=== PATIENT | male | born 1995 | race Hispanic/Latino ===

== ENCOUNTER 2025-02-13 15:27 | Emergency (ER) | payer OTHER, SELFPAY ==
[2025-02-13 15:28] VITALS: BP 142/101; PULSE 69; RESP 16; TEMP 36; O2SAT 100; BMI 21.7
--- NOTE | 2025-02-13 15:32 | ED.RN ---
This RN attempted to call Gilbert with [facility] for drug and alcohol testing, gilbert did not answer. Voicemail left
[2025-02-13] MEDS: Lidocaine 1% (20 ml mdv) 20 ML Vial INFILT (15:43)
--- NOTE | 2025-02-13 15:52 | EDS_ITS ---
HPI History of Present Illness HPI Narrative: 29-year-old healthy male no no prior surgery to this hand. Past medical history. He is right-hand dominant. He was at work today and cut the dorsum of his left thumb. This occurred just prior to arrival. Unsure of his last tetanus that will be updated. Denies any other injuries. He is unable to extend his left thumb. Chief Complaint: Laceration Occured/Mechanism Mechanism/Context: Yes injury Onset/Context/Timing Onset: Today and Hours Context: Sudden Onset Timing: Continuous Quality of Pain: Sharp Current Severity: Mild Maximum Severity: Mild Narrative Narrative: 29-year-old male no significant past medical history. [id number]. Left thumb laceration dorsum of the left thumb at work just prior to arrival. Unknown last tetanus will be updated. Tetanus Immunization: Unknown Prior similar symptoms: No Recent Illness/Hospitalization: No PFSH PFSH Medical History no medical history no medical history Allergy/AdvReac Type Severity Reaction Status Date / Time No Known Allergies Allergy Verified 02/13/25 15:28 Surgical History no surgical history Social History Smoking Status: Never smoker ROS ROS ED ROS Narrative Denies recent illness Constitutional Constitutional ED: Denies fever(s) Eyes Eyes: Denies blurry vision ENT ENT ED: Denies ear pain Cardiovascular Cardiovascular: Denies chest pain Respiratory/Chest Respiratory/Chest: Denies cough Gastrointestinal Gastrointestinal: Denies abdominal pain Genitourinary Genitourinary ED: Denies hematuria Musculoskeletal Musculoskeletal: Denies back pain Integumentary Denies abscess Neurologic Neurologic: Denies headache(s) Psychiatric Psychiatric: Denies anxiety Endocrine Endocrinology: Denies cold intolerance Hematologic/Lymphatic Hematologic/Lymphatic: Denies easy bleeding, easy bruising or lymphadenopathy Allergic/Immunologic Allergic/Immunologic ED: Denies mouth swelling, tongue swelling or urticaria EXAM Physical Exam Narrative Exam Narrative: Consider male sitting upright in bed vital signs stable afebrile. There is an glass finisher in the room. H EENT exam pupils round react light. Moist rehemorrhage. No trauma nose face or scalp. Neck nontender. Back nontender. Lungs clear to auscultation bilaterally. Heart regular rhythm rate about 70 no murmur. Chest wall ribs nontender. Abdomen soft nontender. Moving all 4 extremities. Dorsal left hand has 2 inch or so laceration between the MCP and PIP. He is unable to extend the distal phalanx of his left thumb concern for extensor tendon laceration. Normal cap refill. Normal touch sensation. Able to do flexion. Mild active bleeding. Patient is awake alert. Const Vital Signs: 02/13/25 15:28 Temperature 96.8 F L Temperature Source Temporal Pulse Rate 69 Respiratory Rate 16 Blood Pressure 142/101 H Blood Pressure Mean 114 Pulse Ox 100 Oxygen Delivery Method Room Air Positive well nourished and well developed; Negative for cachectic, contractures or unkempt General Appearance ED: well developed; Negative for unkempt, cachectic, contractures, cyanotic or diaphoretic Nutritional Appearance: Negative for cachectic HEENT Reports moist mucous membranes normocephalic and atraumatic; Negative for trauma or tenderness Eyes PERRL and EOMs intact bilaterally Neck full ROM and supple General: Negative for tenderness Chest Wall inspection of chest normal and palpation of chest normal Resp normal respiratory effort and clear to auscultation bilaterally Cardio regular rate, regular rhythm, S1 normal heart sound, S2 normal heart sound and no murmurs GI non-tender, non-distended and no masses Palpation: soft; Negative for tender, guarding or rebound tenderness present Back/Spine no CVA tenderness Extremity Negative for normal to inspection or full ROM Extremity Narrative: Left thumb dorsal side 1 to 2 inch laceration between the MCP and PIP. Mild active bleeding. He is unable to extend the distal phalanx of the left thumb concern for an extensor tendon laceration. Normal touch sensation. 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 injury left thumb laceration dorsal side concern for extensor tendon laceration because he is unable to extend the distal end of the thumb. Tetanus updated. X-ray of be obtained. Tetanus updated. Wound locally anesthetized. Cleaned thoroughly. Explored. Irrigated and closed. Follow-up with plastic surgery for extensor tendon repair. History & Record Review Discussion w/independent historian: Patient Additional record(s) reviewed:: No prior records Radiography Diagnostic Testing: Left thumb x-ray, 3 views, interpreted by myself shows no acute fracture. No foreign body. No dislocation. Discharge Plan Triage Chief Complaint: Laceration ED Provider: Champ Angulo Dx/Rx/DC Orders Primary Care Provider: Care Physician,No Primary Referrals: NOT,DEFINED [Non-Staff] - Print Language: Tajik
--- NOTE | 2025-02-13 16:24 | RAD_ITS ---
PROCEDURE: LEFT FINGER(S) MIN 2 VIEWS 02/13/2025 REASON FOR EXAM: LEFT THUMB LACERATION. TECHNIQUE: Frontal lateral and oblique radiographs of the left thumb COMPARISON: None. FINDINGS: No acute fracture or dislocation/subluxation. The interphalangeal joint of the thumb is fixed in the slightly flexed position, which may reflect injury to the extensor tendon. Preserved joint spaces. No aggressive osseous lesion. Mild soft tissue swelling about the thumb. No radiopaque foreign body. RAD/Finger(s) Min 2 Views IMPRESSION: No acute fracture. The left 1st digit (thumb) interphalangeal joint fixed in t he flexed position which may reflect injury to the extensor tendon. Reading Location: [id number]
== END 2025-02-13 18:10 | disposition home or self-care (01) ==
LOC: ED 16:03
PROVIDERS: Emergency Provider Emergency Medicine; Visit Provider Emergency Medicine
DX: S61.012A Laceration without foreign body of left thumb without damage to nail, initial encounter (principal); W26.8XXA Contact with other sharp object(s), not elsewhere classified, initial encounter; Y99.0 Civilian activity done for income or pay; Z23 Encounter for immunization
CPT/HCPCS: 12002; 73140; 90715; 99284

== ENCOUNTER 2025-02-15 12:41 | Day surgery (SDC) | payer OTHER, SELFPAY ==
[2025-02-15] VITALS (9 sets, daily range): BP systolic 123–136; BP diastolic 73–93; PULSE 59–76; RESP 16; TEMP 36.1–36.8; O2SAT 96–130; BMI 24.8
[2025-02-15] MEDS: Lactated Ringers 1,000 ML 15 ML IV (13:25)
--- NOTE | 2025-02-15 13:39 | SUR.PREOP ---
peace officer used via tablet
--- NOTE | 2025-02-15 13:50 | PRE.ANES_ITS ---
ASA Classification* ASA Classification ASA Classification: 1 and E Assessment & Plan Anesthesia* Anesthesia Assessment Anesthesia Assessment: Discussed sedation and/or anesthesia options, risks, benefits, and alternatives with patient/parents/legal guardian/POA. Questions invited. The patient/parents/legal guardian/POA seems to understand and agrees to proceed with anesthesia plan. Reviewed the physical assessment, medical history, allergy history and patient home medications list prior to surgery/procedure/anesthetic and documented any changes. Performed airway and anesthesia risk assessments. Anesthesia Type Anesthesia Type: MAC History Source History Obtained from:: Patient, Chart and - (Interpretation service was used for this interview.) Anesthesia Focused Assessment* Temperature: 98.3 F Pulse Rate: 62 Blood Pressure: 123/73 Respiratory Rate: 16 Pulse Ox: 100 Oxygen Delivery Method: Room Air Airway Assessment Mouth opens: >3 cm Mallampati Score: I Teeth Condition: Intact Neck Range of motion (ROM): Full ROM Labs Anesthesia Preop lab: CBC CHEMISTRY COAG Pre-Assessment Diagnosis/Proposed Procedure Planned Operative Procedure(s): left thumb extensor tendon repair Anesthesia History Anesthesia History - ruby on rails consultant: Anesthesia History - ruby on rails consultant Hx Hospitalization No 02/15/25 13:05 Any Problems With Anesthesia No 02/15/25 13:05 Cholinesterase deficiency No 02/15/25 13:05 You/Your Family Experience No 02/15/25 13:05 fever (hyperthermia) with Relationship Recent Exposure to Contagious No 02/15/25 13:10 Disease Does patient have nerve No 02/15/25 13:05 stimulator Patient instructed to have device shut off --Does patient have Pacemaker No 02/15/25 13:10 or ICD? When Was Last Pacemaker Check QUESTION #4 FULL TEXT: You/Your Family Experience fever (hyperthermia) with Anesthesia Last Oral Intake Last Oral intake: Last Oral Intake NPO since 00:00 02/15/25 13:10 Meds taken in AM with sips of water? Meds patient instructed to take am of surgery PONV PONV - ruby on rails consultant: PONV - ruby on rails consultant Female No 02/15/25 13:05 HX of Motion Sickness No 02/15/25 13:05 HX of N/V After Surgery No 02/15/25 13:05 Non-Smoker Yes 02/15/25 13:05 Duration of Surgery greater No 02/15/25 13:05 than 60 minutes Number of Risk Factors 1 02/15/25 13:05 PONV Score Low Risk 02/15/25 13:05 Height & Weight Height & Weight: Anesthesia: Height & Weight Height 4 ft 11.06 in 02/15/25 13:10 Weight: 56 kg 02/15/25 13:10 Body Mass Index (BMI) 24.8 02/15/25 13:10 Respiratory Assessment Respiratory Assessment - ruby on rails consultant: Respiratory Tract Infection Hx - ruby on rails consultant Hx Respiratory Tract Infection No 02/15/25 13:05 STOP Sleep Apnea STOP Sleep Apnea - ruby on rails consultant: STOP Sleep Apnea - ruby on rails consultant Hx Hypertension No 02/15/25 13:05 Hx Sleep Apnea No 02/15/25 13:05 CPAP BIPAP Do you snore loudly (louder No 02/15/25 13:05 than talking or can be heard Do you often feel tired/ No 02/15/25 13:05 fatigued/ sleepy during daytime? Has anyone observed you stop No 02/15/25 13:05 breathing during sleep? STOP Results Negative 02/15/25 13:05 QUESTION #5 FULL TEXT : Do you snore loudly (louder than talking or can be heard through closed doors)? 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 Specify any problems Hx of Preganancy in last 3 N/A 02/15/25 13:05 Months Nurse Filling Out Transfusion CPARSONS 02/15/25 13:05 & Questions: Date: 02/15/25 02/15/25 13:05 Time: 13:09 02/15/25 13:05 Patient unable to answer at this time (ie. confused, unrespo /Reproduction History /Reproductive History - ruby on rails consultant: /Reproductive Hx- ruby on rails consultant Hx Now No 02/15/25 13:05 Gestational Age (in weeks): EDC: Hx Hx Para Hx Section SAB Active Medications Active Medications: Current Medications Generic Name Dose Route Start Last Admin Trade Name Freq PRN Reason Stop Dose Admin Cefazolin Sodium 2 gm/ Sodium 110 mls @ 200 mls/hr 02/15/25 15:00 Chloride IV 02/15/25 15:32 INTRAOP ONE Lactated Ringer's 1,000 mls @ 15 mls/hr 02/15/25 13:00 02/15/25 13:25 IV 15 mls/hr .Q48H OSMAR Administration PFSH Medical History no medical history Allergy/AdvReac Type Severity Reaction Status Date / Time No Known Allergies Allergy Verified 02/15/25 13:04 Surgical History no surgical history no surgical history Social History Smoking Status: Never smoker Review of Systems (Anesthesia) ROS Narrative System reviewed and no additional complaints, except as documented.
--- NOTE | 2025-02-15 14:38 | PCM.HP.STD ---
HPI - General HPI Narrative AJ HARRINGTON, is a 29 M who presents with left dorsal thumb laceration and concern for EPL complete laceration. Current Encounter (DATE OF SURGERY H&P UPDATE): I saw and examined the patient this morning in pre-operative holding. We discussed risks and benefits of today's surgery and they would like to proceed. NO CHANGE in health history since last seen and evaluated. Ready to proceed with surgery. PFSH Medical History no medical history Allergy/AdvReac Type Severity Reaction Status Date / Time No Known Allergies Allergy Verified 02/15/25 13:04 Surgical History no surgical history Social History Smoking Status: Never smoker Vital Signs Vital Signs Vital Signs: 02/15/25 13:10 02/15/25 13:10 02/15/25 14:04 Temperature 98.3 F 98.3 F Temperature Source Temporal Pulse Rate 62 62 Respiratory Rate 16 16 Respiratory Pattern Normal Blood Pressure 123/73 H 123/73 H Blood Pressure Mean 89 Blood Pressure Source Monitor Blood Pressure Position Semi-Fowlers Blood Pressure Location Right Arm Pulse Ox 100 100 Oxygen Delivery Method Room Air Room Air Weight Weight: 123 lb 7.342 oz Body Mass Index (BMI) 24.8 Physical Exam Narrative LUE: Left thumb with transverse dorsal laceration. Unable to extend thumb at IP joint. I marked his left thumb Assessment & Plan Assessment/Plan (1) Extensor tendon laceration of left hand with open wound: PLAN: I talked to the patient extensively about the risks of surgery, including bleeding, infection, damage to surrounding structures, poor scaring, surgical site dehiscence and wound formation, a stiff finger, need for hand therapy, failure of repair, need for revision or need for tendon transfer, need for wound care, need for repeat operations, failure to obtain the desired result, DVT/PE, and the risks of anesthesia including , including stroke (from low blood pressure/ischemia or clot). The benefits and alternatives of this surgery were also discussed. All of their questions were answered, and they agreed to proceed with surgery. INTERVAL H&P PLAN, DATE OF SURGERY: We will proceed with surgery today.
--- NOTE | 2025-02-15 15:04 | PCM.OPRPT ---
Operative Report (Standard) Operative Information Date of Procedure: 02/15/25 Pre-Operative Diagnosis: Left thumb extensor pollicis longus (EPL) laceration Post-Operative Diagnosis: Same Surgery/Procedure Performed: Repair of left thumb EPL tendon (CPT: 37012) composition floor layer: Yes Management Manager: Gretchen Diaz Tasks completed by rehabilitation assistant: Retracting Type of Anesthesia: Local MAC (8 cc of 50-50 mixture of 1% lidocaine and quarter percent Marcaine) RN Documented Start/Stop Times: Operation Date: 02/15/25 15:00 Case Time Into Pre-Op 02/15/25 12:49 Anesthesia Start 02/15/25 14:48 Into Room 02/15/25 14:48 Procedure Start Time: 14:00 Procedure Stop Time: 14:30 Select all DRAINS/GRAFTS/IMPLANTS that apply: None Estimated Blood Loss: 5 cc Specimen collected: No Description of surgery: Indications: Patient is a delightful 29-year-old male with a left thumb laceration with concern for EPL injury. Presents today for repair. He understands the risks, benefits, and alternatives of the procedure today and elected to proceed. Procedure details: Patient was correct identified in preoperative holding and marked. He was taken back to the operating room he was administered sedation and local anesthesia as noted above. He was prepped and draped in sterile fashion all proper timeouts were performed. An Esmarch was used and the tourniquet on his arm was insufflated to 250 mmHg. The existing laceration was opened with tenotomy scissors and sutures were removed. The EPL stumps were identified. The laceration was extended proximally and distally into a Z ever so slightly so that primary repair could be performed. The wound was then washed out with copious amounts of normal saline and Irrisept .The extensor expansion and the EPL was then repaired with 4 core strands using 2 [id number] 3-0 FiberWire sutures. 6-0 running Prolene epitendinous suture was then applied. The tourniquet was then deflated and hemostasis obtained with bipolar electrocautery. The wound edges were then sutured with interrupted 3-0 Chromic Gut suture. Xeroform and a plaster splint (thumb spica with thumb in full extension) was then applied. The patient tolerated the procedure well. He was awakened and taken the PACU in stable condition. Postoperative plan: Follow-up in 1 week for wound check and to be changed into an Orthoplast splint. Surgical Findings: EPL laceration with 1 cm distal stump Able to perform primary repair Complications Complications: No Admit VTE Documentation VTE Mechan Device Prophylaxis: SCD's
[2025-02-15] MEDS: Lidocaine 1% (20 ml mdv) 20 ML Vial (15:30)
[2025-02-15] MEDS: Lidocaine 1% /Epi 1:100 (20ml) 20 ML Vial (15:32)
--- NOTE | 2025-02-15 15:56 | PCM.POST.ANE ---
Anesthesia: Postop Eval I Current Vital Signs Temperature: 97.6 F Pulse Rate: 76 Blood Pressure: 127/82 Respiratory Rate: 16 Pulse Ox: 96 Oxygen Delivery Method: Room Air Assessment Airway patent: Yes Spontaneous unlabored respirations: Yes Mental status: Awake and Calm nausea: No Vomiting: No Anesthesia Complication: No Fluid Hydration Crystalloid volume administer (ml): 400 Total IV fluid infused: 400 Progress Note Anesthesia document: Postop Eval 1 completed: Yes
--- NOTE | 2025-02-15 19:09 | POSTOPAN2_ITS ---
Anesthesia Postop Eval I Sum Postop Eval Completion status Anesthesia document: Postop Eval 1 completed: Yes Anesthesia Postop Eval I Summary Anesthesia Postop Eval I Summary: Anesthesia Postop Eval I: Assessment Summary Airway patent Yes 02/15/25 15:56 TREE [email or web address] Spontaneous unlabored Yes 02/15/25 15:56 TREE [email or web address].MONI respirations Mental status Awake,Calm 02/15/25 15:56 TREE [email or web address] nausea No 02/15/25 15:56 TREE [email or web address].MONI Vomiting No 02/15/25 15:56 TREE [email or web address].MONI Anesthesia Postop Eval I: Fluid Summary Crystalloid volume administer 400 02/15/25 15:56 TREE [email or web address].[email or web address] (ml) Colloids volume administered ( ml) Blood Product volume administered (ml) Total IV fluid infused 400 02/15/25 15:56 TREE [email or web address].MONI Anesthesia Postop Eval I: Summary Notes Anesthesia Complication No 02/15/25 15:56 TREE KILLERLAMAR Anesthesia Complication Comment: Post-operative progress note Anesthesia: Postop Eval II Evaluation Mental status: Awake Pain Level: 2 nausea: No Vomiting: No
--- NOTE | 2025-02-15 19:09 | PCM.POSTANE2 ---
Anesthesia Postop Eval I Sum Postop Eval Completion status Anesthesia document: Postop Eval 1 completed: Yes Anesthesia Postop Eval I Summary Anesthesia Postop Eval I Summary: Anesthesia Postop Eval I: Assessment Summary Airway patent Yes 02/15/25 15:56 TOOLMAKER [email or web address] Spontaneous unlabored Yes 02/15/25 15:56 TOOLMAKER HELPER.MONI respirations Mental status Awake,Calm 02/15/25 15:56 TOOLMAKER HELPER.MONI nausea No 02/15/25 15:56 TOOLMAKER HELPER.MONI Vomiting No 02/15/25 15:56 TOOLMAKER HELPER.MONI Anesthesia Postop Eval I: Fluid Summary Crystalloid volume administer 400 02/15/25 15:56 TOOLMAKER HELPER.PATSYY (ml) Colloids volume administered ( ml) Blood Product volume administered (ml) Total IV fluid infused 400 02/15/25 15:56 TOOLMAKER HELPER.MONI Anesthesia Postop Eval I: Summary Notes Anesthesia Complication No 02/15/25 15:56 TOOLMAKER HELPERLAMAR Anesthesia Complication Comment: Post-operative progress note Anesthesia: Postop Eval II Evaluation Mental status: Awake Pain Level: 2 nausea: No Vomiting: No
--- OUTSIDE RECORDS SUMMARY | 2025-02-15 19:50 | XMS RPT_ITS | CCD ---
Author Organization [facility] Care Team Providers Care Corporate Administrative Assistant Name Role Phone Kev SAHNI, Dr. Oakes Emergency Provider Care Physician, No Primary Primary Care Provider Unavailable Care Physician, No Primary Referring Provider Un Dr. Jeff Nye MD Attending Provider Champ Angulo Attending Unavailable Care Physician, No Primary Primary Care Unava ilable Care Physician, No Primary Primary Care Unava ilable Jeff Shanks Attending Unavailable Dimitris, Jeff Attending Unavailable Care Physician, No Primary Primary Care Unava ilable Dimitris, Jeff Attending Unavailable Care Physician, No Primary Referring Unava ilable Care Physician, No Primary Primary Care Heenava Dr. Jeff Anguiano MD Referring Provider Dr. Jeff hSanks MD Other Provider [phone] Medications Current Medications Medication Drug Class(es) Dates Sig (Normalized) Sig (Original) doxycycline hyclate 100 mg oral capsule (1 source) Tetracycline-cla ss Drug Start: 02-15-2025 take 1 capsule by mouth twice daily Doxycycline Hyclate 100 mg capsule Active 100 mg PO TWICE A DAY 14 7 0 February 15, 2025 12:00am oxyCODONE hydrochloride 5 mg oral tablet (1 source) Opioid Agonist Start: 02-15-2025 take 1 tablet by mouth twice daily as needed for pain Oxycodone 5 mg tablet Active 5 mg PO TWICE A DAY as needed for pain 10 5 0 February 15, 2025 Extensor tendon laceration of left hand with open wound Unspecified open wound of left hand, initial encounter Problems Problem Classification Problem Date Documented Da te Episodic/Chronic Open wounds of extremities (4 sources) Laceration of tendon of left hand; Translations: [Laceration of other specified muscles, fascia and tendons at wrist and hand level, left hand, initial encounter] 02-14-2025 Episodic Results Test Name Value Interpretation Reference Range [facility] Plastic Surgery Visit Report on 02-14-2025 Plastic Surgery Visit Report [facility] [address], [address] [place] [address] OFFICE VISIT Date of Service: 02/14/25 MR#: [id number] Acct: [id number] Name: AJ HARRINGTON Rep #: [id number] : 1995 Provider: Dr. Jeff Shanks MD Age/Sex: 29/M Location: [place] [address] Status: Signed Intake Vital Signs 02/13/25 15:28 02/14/25 08:37 Height 5 ft 5 in 5 ft 5 in Intake Visit Reasons: ED FOLLOW UP-[facility] Allergies No Known Allergies Allergy (Verified 02/13/25 15:28) PFSH Medical History no medical history Surgical History no surgical history Social History Smoking Status: Never smoker [facility] ED FOLLOW UP-[facility] Details: The patient is a 29-year-old male presenting with a dorsal left thumb injury sustained from a knife cut where there was concern for extensor pollicis longus (EPL) injury. 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 The patient is right-handed and received a tetanus shot yesterday at the time of the injury in the emergency department. The patient reports no previous significant injuries to the hand, although he has experienced minor issues in the past. He denies any other health problems and does not use tobacco products. Patient is not a smoker No personal or family history of bleeding or clotting problems He is here today with a helicopter technician who is interpreting for him Attestation: Documentation on this patient encounter was supported using ambient scribe technology/ voice AI technology. The patient consented to recording for the purpose of documenting the encounter. Provider reviewed content of the generated note prior to signature. Exam Details Left upper Extremity Inspection: Thumb droop observed, unable to extend the IP joint Palpation: No collateral ligament instability in the thumb. Thumb joints are supple and have complete passive range of motion Motor: difficulty opposing thumb to the small finger. Unable to extend the thumb IP joint Sensory: Intact to light touch on the radial and ulnar borders; no numbness or tingling reported. Vascular: Finger tips are warm and well perfused with greater than 2 second capillary refill. 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 The injury has resulted in a tendon injury, causing inability to extend the thumb and difficulty in opposition. The patient received a tetanus shot and is on antibiotics to prevent infection. Surgical intervention is planned to repair the tendon, with risks including infection, nerve damage, and potential re-rupture if the patient returns to work prematurely. 1. Tendon Injury Of The Thumb The patient will undergo surgical repair of the thumb tendon to restore function. Post-operative care includes wearing a splint for three weeks and engaging in hand therapy to regain mobility. The patient is advised to avoid returning to work prematurely to prevent re-rupture. Furthermore we talked about the planned extensions of the incision. 2. Tetanus Prophylaxis The patient received a tetanus shot as a preventative measure following the injury. I talked to the patient extensively about the risks of surgery, including bleeding, infection, damage to surrounding structures, poor scaring, surgical site dehiscence and wound formation, need for wound care, need for repeat operations, rupture of the tendon and need for tendon transfers (also discussed need for tendon interposition graft possibility which would be a palmaris tendon), need for tendon transfers in the future which would be an EIP transfer, failure to obtain the desired result, DVT/PE, and the risks of anesthesia including , including stroke (from low blood pressure/ischemia or clot). The benefits and alternatives of this surgery were also discussed. All of their questions were answered, and they agreed to proceed with surgery. Plan for repair of the left EPL under [facility] local tomorrow 02/14/25 1708 Date Jeff Shanks MD Cosigner Signature: Date (if applicable) CC: Normal [facility] Emergency Department Summary on 02-13-2025 Emergency Department Summary [facility] Medical Records Department [address] [place] [address] Emergency Department Summary 02/13/25 MR#: [id number] Acct: [id number] Name: AJ HARRINGTON Rep #: [id number] : 1995 29 From: Champ Angulo MD PCP: Care Physician,No Primary Status:DEP ER Location: ED HPI History of Present Illness HPI Narrative: 29-year-old healthy male no no prior surgery to this hand. Past medical history. He is right-hand dominant. He was at work today and cut the dorsum of his left thumb. This occurred just prior to arrival. Unsure of his last tetanus that will be updated. Denies any other injuries. He is unable to extend his left thumb. Chief Complaint: Laceration Occured/Mechanism Mechanism/Context: Yes injury Onset/Context/Timing Onset: Today and Hours Context: Sudden Onset Timing: Continuous Quality of Pain: Sharp Current Severity: Mild Maximum Severity: Mild Narrative Narrative: 29-year-old male no significant past medical history. [id number]. Left thumb laceration dorsum of the left thumb at work just prior to arrival. Unknown last tetanus will be updated. Tetanus Immunization: Unknown Prior similar symptoms: No Recent Illness/Hospitalizatio n: No PFSH PFSH Medical History no medical history no medical history Allergy/AdvReac Type Severity Reaction Status Date / Time No Known Allergies Allergy Verified 02/13/25 15:28 Surgical History no surgical history Social History Smoking Status: Never smoker ROS ROS ED ROS Narrative Denies recent illness Constitutional Constitutional ED: Denies fever(s) Eyes Eyes: Denies blurry vision ENT ENT ED: Denies ear pain Cardiovascular Cardiovascular: Denies chest pain Respiratory/Chest Respiratory/Chest: Denies cough Gastrointestinal Gastrointestinal: Denies abdominal pain Genitourinary Genitourinary ED: Denies hematuria Musculoskeletal Musculoskeletal: Denies back pain Integumentary Denies abscess Neurologic Neurologic: Denies headache(s) Psychiatric Psychiatric: Denies anxiety Endocrine Endocrinology: Denies cold intolerance Hematologic/Lymphatic Hematologic/Lymphatic: Denies easy bleeding, easy bruising or lymphadenopathy Allergic/Immunologic Allergic/Immunologic ED: Denies mouth swelling, tongue swelling or urticaria EXAM Physical Exam Narrative Exam Narrative: Consider male sitting upright in bed vital signs stable afebrile. There is an welder fitter apprentice in the room. H EENT exam pupils round react light. Moist rehemorrhage. No trauma nose face or scalp. Neck nontender. Back nontender. Lungs clear to auscultation bilaterally. Heart regular rhythm rate about 70 no murmur. Chest wall ribs nontender. Abdomen soft nontender. Moving all 4 extremities. Dorsal left hand has 2 inch or so laceration between the MCP and PIP. He is unable to extend the distal phalanx of his left thumb concern for extensor tendon laceration. Normal cap refill. Normal touch sensation. Able to do flexion. Mild active bleeding. Patient is awake alert. Const Vital Signs: 02/13/25 15:28 Temperature 96.8 F L Temperature Source Temporal Pulse Rate 69 Respiratory Rate 16 Blood Pressure 142/101 H Blood Pressure Mean 114 Pulse Ox 100 Oxygen Delivery Method Room Air Positive well nourished and well developed; Negative for cachectic, contractures or unkempt General Appearance ED: well developed; Negative for unkempt, cachectic, contractures, cyanotic or diaphoretic Nutritional Appearance: Negative for cachectic HEENT Reports moist mucous membranes normocephalic and atraumatic; Negative for trauma or tenderness Eyes PERRL and EOMs intact bilaterally Neck full ROM and supple General: Negative for tenderness Chest Wall inspection of chest normal and palpation of chest normal Resp normal respiratory effort and clear to auscultation bilaterally Cardio regular rate, regular rhythm, S1 normal heart sound, S2 normal heart sound and no murmurs GI non-tender, non-distended and no masses Palpation: soft; Negative for tender, guarding or rebound tenderness present Back/Spine no CVA tenderness Extremity Negative for normal to inspection or full ROM Extremity Narrative: Left thumb dorsal side 1 to 2 inch laceration between the MCP and PIP. Mild active bleeding. He is unable to extend the distal phalanx of the left thumb concern for an extensor tendon laceration. Normal touch sensation. Neuro oriented x3, CN's II-XII intact bilaterally, moves all extremities, no focal motor deficits and no sensory deficits noted Sensorium / Orientation: alert, oriented to person, oriented to place and oriented to time Motor Exam: strength 5/5 throughout Psych mental status grossly normal Appearance: Negativ (more content not included)... Normal [facility] Finger(s) Min 2 Viewson 01-25 Finger(s) Min 2 Views [facility] Imaging Services [address] [place] [address] Finger(s) Min 2 Views MR#: [id number] Acct: [id number] Name: AJ HARRINGTON Rep #: [id number] : 1995 M 29 From: Armen Menendez MD PCP: Care Physician,No Primary Status: REG ER Study: Finger(s) Min 2 Views Date of Exam: 02/13/25 Exam# [id number] Ordering Dr: Champ Angulo MD PROCEDURE: LEFT FINGER(S) MIN 2 VIEWS 02/13/2025 REASON FOR EXAM: LEFT THUMB LACERATION. TECHNIQUE: Frontal lateral and oblique radiographs of the left thumb COMPARISON: None. FINDINGS: No acute fracture or dislocation/subluxatio n. The interphalangeal joint of the thumb is fixed in the slightly flexed position, which may reflect injury to the extensor tendon. Preserved joint spaces. No aggressive osseous lesion. Mild soft tissue swelling about the thumb. No radiopaque foreign body. RAD/Finger(s) Min 2 Views IMPRESSION: No acute fracture. The left 1st digit (thumb) interphalangeal joint fixed in the flexed position which may reflect injury to the extensor tendon. Reading Location: [id number] CC: Dr. Champ Angulo MD; No Primary Care Physician Car Spotter: Signed Normal [facility] Vital Signs Date Time Vital Sign Value Performing Clinician Faci lity 02-15-2025 16:26-0400 Body temperature 97 [degF] Dr. Champ Angulo MD Work Phone: [facility] 02-15-2025 16:26-0400 Diastolic blood pressure 93 mm[Hg] Dr. Champ Angulo MD Work Phone: 7(776)883-980493 [place] [address] 02-15-2025 16:26-0400 Heart rate 62 /min Dr. Champ Angulo MD Work Phone: 3(991)995-732193 [place] [address] 02-15-2025 16:26-0400 Respiratory rate 16 /min Dr. Champ Angulo MD Work Phone: 0(370)705-687193 [place] [address] 02-15-2025 16:26-0400 SaO2% (BldA) [Mass fraction] 98 % Dr. Champ Angulo MD Work Phone: [phone])[phone] [place] [address] 02-15-2025 16:26-0400 Systolic blood pressure 129 mm[Hg] Dr. Champ Angulo MD Work Phone: 7(178)253-875593 [place] [address] 02-15-2025 13:10-0400 Body height 150.[address] Champ Angulo MD Work Phone: 1(080)682-165793 [place] [address] 02-15-2025 13:10-0400 Body mass index (BMI) [Ratio] 24.8 kg/m2 Dr. Champ Angulo MD Work Phone: 7(244)268-038993 [place] [address] 02-15-2025 13:10-0400 Body weight [address] Champ Angulo MD Work Phone: 0(325)304-963293 [place] [address] 02-14-2025 08:37-0400 Body height 165.[address] Champ Angulo MD Work Phone: 9(428)203-318993 [place] [address] 02-13-2025 15:28-0400 Body height 165.[address] Champ Angulo MD Work Phone: 0(384)273-814793 [place] [address] 02-13-2025 15:28-0400 Body mass index (BMI) [Ratio] 21.7 kg/m2 Dr. Champ Angulo MD Work Phone: 2(215)538-706093 [place] [address] 02-13-2025 15:28-0400 Body temperature 96.8 [degF] Dr. Champ Angulo MD Work Phone: 5(468)130-721493 [place] [address] 02-13-2025 15:28-0400 Body weight 59.[address] Champ Angulo MD Work Phone: [facility] 02-13-2025 15:28-0400 Diastolic blood pressure 101 mm[Hg] Dr. Champ Angulo MD Work Phone: [facility] 02-13-2025 15:28-0400 Heart rate 69 /min Dr. Champ Angulo MD Work Phone: [facility] 02-13-2025 15:28-0400 Respiratory rate 16 /min Dr. Champ Angulo MD Work Phone: [facility] 02-13-2025 15:28-0400 SaO2% (BldA) [Mass fraction] 100 % Dr. Champ Angulo MD Work Phone: [facility] 02-13-2025 15:28-0400 Systolic blood pressure 142 mm[Hg] Dr. Champ Angulo MD Work Phone: [facility] Encounters Encounter Date Encounter Type Care Provider Facility Start: 02-15-2026 ambulatory Jeff Shanks Facility:[facility] Start: 02-15-2025 ambulatory No Primary Car e Physician Facility:[facility] Start: 02-15-2025 Non-patient / Non-visit Dr. Jeff navarro MD -[facility] Start: 02-15-2025 End: 02-15-2025 Admission to same day surgery center Dr. Jeff Shanks MD [facility] Start: 02-15-2025 End: 02-15-[address] Champ Angulo MD Work Phone: [facility] Start: 02-14-2025 End: 02-14-[address] Jeff Shanks MD -[facility] Work Phone: Start: 02-14-2025 End: 02-14-[address] Champ Angulo MD Work Phone: -[facility] Start: 02-13-2025 End: 02-13-2025 Emergency department patient visit Dr. Champ Angulo MD Work Phone: -Emergency Department Work Phone: Procedures Date Procedure Procedure Detail Performing Clinician Start: 02-15-[address] Dennis Angulo MD Work Phone: Start: 02-13-2025 Plain X-ray of finger D r. Champ Angulo MD Work Phone: Plan of Treatment Date Care Activity Detail Author Start: 02-15-[address] [facility] Start: 02-13-2025 [facility] Immunizations Immunization Date Immunization Notes Care Provider Fa cility 02-13-2025 tetanus toxoid, redu wicho diphtheria toxoid, and acellular pertussis vaccine, adsorbed Dr. Champ Angulo MD Work Phone: [facility] Payers Date Payer Category Payer Self-pay 2025 Unknown 0 Unknown [id number] Unknown [id number] Unknown [id number] [id number] Unknown [id number] [id number] [id number] Social History Date Type Detail Facility Start: 02-13-2025 End: 02-15-2025 Tobacco smoking status NHIS Never smoked tobacco (finding) [facility] Start: 1995 Sex Assigned At Male [facility] Goals Date Patient Goal Desired Activity /State Mental Status Date Assessment Result Facility 02-15-2025 Cognitive function Voice/Name;Touch/Bridget calabrese [facility] Work Phone: Clinical Notes 02-13-2025 to 02-15-2025 Note Date & Type Note Facility 02-15-2025 Consult note Note Date/Time February 15, 2025 3:56 pm [facility] Medical Records Department [address] [place] [address] Anesthesia Postop Eval I 02/15/25 1556 MR#: [id number] Acct: [id number] Name: AJ HARRINGTON Rep #:[id number] : 1995 29 From: Meera snyder CRNA PCP: Care Physician,No Primary Status :[facility] Y Race: H Location: [place] [address] Anesthesia: Postop Eval I Current Vital Signs Temperature: 97.6 F Pulse Rate: 76 Blood Pressure: 127/82 Respiratory Rate: 16 Pulse Ox: 96 Oxygen Delivery Method: Room Air Assessment Airway patent: Yes Spontaneous unlabored respirations: Yes Mental status: Awake and Calm nausea: No Vomiting: No Anesthesia Complication: No Fluid Hydration Crystalloid volume administer (ml): 400 Total IV fluid infused: 400 Progress Note Anesthesia document: Postop Eval 1 completed: Yes 02/15/25 9646 <Electronically signed by Meera hope CRNA> Date _ Meera Saldana CRNA Cosigner Signature: Date CC: ~ Signed [facility] Work Phone: 1(715) 958-524107-23-2025 History and physical note Author [facility] Note Date/Time February 15, 2025 2:40 pm [facility] Medical Records Department [address] [place] [address] H&P Exam - Surgical 02/15/25 1438 MR#: [id number] Acct: [id number] Name: AJ HARRINGTON Rep #:[id number] : 1995 29 From: Jeff Shanks MD PCP: Care Physician,No Primary Status :REG [place] Location: [place] [address] HPI - General HPI Narrative AJ HARRINGTON, is a 29 M who presents with left dorsal thumb laceration and concern for EPL complete laceration. Current Encounter (DATE OF SURGERY H&P UPDATE): I saw and examined the patient this morning in pre-operative holding. We discussed risks and benefits of today's surgery and they would like to proceed. NO CHANGE in health history since last seen and evaluated. Ready to proceed with surgery. PFSH Medical History no medical history Allergy/AdvReac Type Severity Reaction Status Date / Time No Known Allergies Allergy Verified 02/15/25 13:04 Surgical History no surgical history Social History Smoking Status: Never smoker Vital Signs Vital Signs Vital Signs: 02/15/25 13:10 02/15/25 13:10 02/15/25 14:04 Temperature 98.3 F 98.3 F Temperature Source Temporal Pulse Rate 62 62 Respiratory Rate 16 16 Respiratory Pattern Normal Blood Pressure 123/73 H 123/73 H Blood Pressure Mean 89 Blood Pressure Source Monitor Blood Pressure Position Semi-Fowlers Blood Pressure Location Right Arm Pulse Ox 100 100 Oxygen Delivery Method Room Air Room Air Weight Weight: 123 lb 7.342 oz Body Mass Index (BMI) 24.8 Physical Exam Narrative LUE: Left thumb with transverse dorsal laceration. Unable to extend thumb at IP joint. I marked his left thumb Assessment & Plan Assessment/Plan (1) Extensor tendon laceration of left hand with open wound: PLAN: I talked to the patient extensively about the risks of surgery, including bleeding, infection, damage to surrounding structures, poor scaring, surgical site dehiscence and wound formation, a stiff finger, need for hand therapy, failure of repair, need for revision or need for tendon transfer, need for wound care, need for repeat operations, failure to obtain the desired result, DVT/PE, and the risks of anesthesia including , including stroke (from low blood pressure/ischemia or clot). The benefits and alternatives of this surgery werealso discussed. All of their questions were answered, and they agreed to proceedwith surgery. INTERVAL H&P PLAN, DATE OF SURGERY: We will proceed with surgery today. 02/15/25 1440 <Electronically signed by Jeff Shanks MD> Cosigner Signature (if applicable): CC: Dr. Jeff Shanks MD; No Primary Care Physician~ Signed [facility] Work Phone: 1(244) 782-467007-23-2025 Consult note Author Marky Godoy [facility] Note Date/Time February 15, 2025 2:06 pm [facility] Medical Records Department [address] [place] [address] Pre-Anesthesia Evaluation 02/15/25 1350 MR#: [id number] Acct: [id number] Name: AJ HARRINGTON Rep #:[id number] : 1995 29 From: Marky Godoy MD PCP: Care Physician,No Primary Status :REG [facility] Y Race: H Location: [place] [address] ASA Classification* ASA Classification ASA Classification: 1 and E Assessment & Plan Anesthesia* Anesthesia Assessment Anesthesia Assessment: Discussed sedation and/or anesthesia options, risks, benefits, and alternatives with patient/parents/legal guardian/POA. Questions invited. The patient/parents/legal guardian/POA seems to understand and agrees to proceedwith anesthesia plan. Reviewed the physical assessment, medical history, allergy history and patient home medications list prior to surgery/procedure/anesthetic and documented any changes. Performed airway and anesthesia risk assessments. Anesthesia Type Anesthesia Type: MAC History Source History Obtained from:: Patient, Chart and - (Interpretation service was used for this interview.) Anesthesia Focused Assessment* Temperature: 98.3 F Pulse Rate: 62 Blood Pressure: 123/73 Respiratory Rate: 16 Pulse Ox: 100 Oxygen Delivery Method: Room Air Airway Assessment Mouth opens: >3 cm Mallampati Score: I Teeth Condition: Intact Neck Range of motion (ROM): Full ROM Labs Anesthesia Preop lab: CBC CHEMISTRY COAG Pre-Assessment Diagnosis/Proposed Procedure Planned Operative Procedure(s): left thumb extensor tendon repair Anesthesia History 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 When Was Last Pacemaker Check QUESTION #4 FULL TEXT: You/Your Family Experience fever (hyperthermia) with Anesthesia Last Oral Intake Last Oral intake: Last Oral Intake NPO since 00:00 02/15/25 13:10 Meds taken in AM with sips of water? Meds patient instructed to take am of surgery PONV PONV - extrusion process operator: PONV - extrusion process operator Female No 02/15/25 13:05 HX of Motion Sickness No 02/15/25 13:05 HX of N/V After Surgery No 02/15/25 13:05 Non-Smoker Yes 02/15/25 13:05 Duration of Surgery greater No 02/15/25 13:05 than 60 minutes Number of Risk Factors 1 02/15/25 13:05 PONV Score Low Risk 02/15/25 13:05 Height & Weight Height & Weight: Anesthesia: Height & Weight Height 4 ft 11.06 in 02/15/25 13:10 Weight: 56 kg 02/15/25 13:10 Body Mass Index (BMI) 24.8 02/15/25 13:10 Respiratory Assessment Respiratory Assessment - extrusion process operator: Respiratory Tract Infection Hx - extrusion process operator Hx Respiratory Tract Infection No 02/15/25 13:05 STOP Sleep Apnea STOP Sleep Apnea - extrusion process operator: STOP Sleep Apnea - extrusion process operator Hx Hypertension No 02/15/25 13:05 Hx Sleep Apnea No 02/15/25 13:05 CPAP BIPAP Do you snore loudly (louder No 02/15/25 13:05 than talking or can be heard Do you often feel tired/ No 02/15/25 13:05 fatigued/ sleepy during daytime? Has anyone observed you stop No 02/15/25 13:05 breathing during sleep? STOP Results Negative 02/15/25 13:05 QUESTION #5 FULL TEXT : Do you snore loudly (louder than talking or can be heard through closed doors)? 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 Specify any problems Hx of Preganancy in last 3 N/A 02/15/25 13:05 Months Nurse Filling Out Transfusion CPARSONS 02/15/25 13:05 & Questions: Date: 02/15/25 02/15/25 13:05 Time: 13:09 02/15/25 13:05 Patient unable to answer at this time (ie. 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 operator Hx Now No 02/15/25 13:05 Gestational Age (in weeks): EDC: Hx Hx Para Hx Section SAB Active Medications Active Medications: Current Medications Generic Name Dose Route Start Last Admin Trade Name Freq PRN Reason Stop Dose Admin Cefazolin Sodium 2 gm/ Sodium 110 mls @ 200 mls/hr 02/15/25 15:00 Chloride IV 02/15/25 15:32 INTRAOP ONE Lactated Ringer's 1,000 mls @ 15 mls/hr 02/15/25 13:00 02/15/25 13:25 IV 15 mls/hr .Q48H OSMAR Administration PFSH Medical History no medical history Allergy/AdvReac Type Severity Reaction Status Date / Time No Known Allergies Allergy Verified 02/15/25 13:04 Surgical History no surgical history no surgical history Social History Smoking Status: Never smoker Review of Systems (Anesthesia) ROS Narrative System reviewed and no additional complaints, except as documented. 02/15/25 1406 <Electronically signed by Marky price MD> Date _ Marky Godoy MD Cosigner Signature: Date CC: ~ Signed [facility] Work Phone: 1(376) 239-287107-23-2025 Procedure note [facility] Medical Records Department [address] [place] [address] Operative Report 02/15/25 1504 MR#: [id number] Acct: [id number] Name: AJ HARRINGTON Rep #:[id number] : 1995 29 From: Jeff Shanks MD PCP: Care Physician,No Primary Status :[facility] [place] Location: [place] [address] Operative Report (Standard) Operative Information Date of Procedure: 02/15/25 Pre-Operative Diagnosis: Left thumb extensor pollicis longus (EPL) laceration Post-Operative Diagnosis: Same Surgery/Procedure Performed: Repair of left thumb EPL tendon (CPT: 99051) sales support representative: Yes Wet Finisher Wool: rGetchen Diaz Tasks completed by high school assistant principal: Retracting Type of Anesthesia: Local MAC (8 cc of 50-50 mixture of 1% lidocaine and quarterpercent Marcaine) RN Documented Start/Stop Times: Operation Date: 02/15/25 15:00 Case Time Into Pre-Op 02/15/25 12:49 Anesthesia Start 02/15/25 14:48 Into Room 02/15/25 14:48 Procedure Start Time: 14:00 Procedure Stop Time: 14:30 Select all DRAINS/GRAFTS/IMPLANTS that apply: None Estimated Blood Loss: 5 cc Specimen collected: No Description of surgery: Indications: Patient is a delightful 29-year-old male with a left thumb laceration with concern for EPL injury. Presents today for repair. He understands the risks, benefits, and alternatives of the procedure today and elected to proceed. Procedure details: Patient was correct identified in preoperative holding and marked. He was takenback to the operating room he was administered sedation and local anesthesia as noted above. He was prepped and draped in sterile fashion all proper timeouts were performed. An Esmarch was used and the tourniquet on his a rm was insufflated to 250 mmHg. The existing laceration was opened with tenotomy scissors and sutures were removed. The EPL stumps were identified. The laceration was extended proximally and distally into a Z ever so slightly so that primary repair could be performed. The wound was then washed out with copious amounts of normal saline and Irrisept .The extensor expansion and the EPL was then repaired with 4core strands using 2 [id number] 3-0 FiberWire sutures. 6-0 running Proleneepitendinous suture was then applied. The tourniquet was then deflated and hemostasis obtained with bipolar electrocautery. The wound edges were then sutured with interrupted 3-0 Chromic Gut suture. Xeroform and a plaster splint (thumb spica with thumb in full extension) was then applied. The patient tolerated the procedure well. He was awakened and taken the PACU instable condition. Postoperative plan: Follow-up in 1 week for wound check and to be changed into an Orthoplast splint. Surgical Findings: EPL laceration with 1 cm distal stump Able to perform primary repair Complications Complications: No Admit VTE Documentation VTE Mechan Device Prophylaxis: SCD's 02/15/251554 Cosigner Signature (if applicable): CC: Dr. Jeff Shanks MD; No Primary Care Physician~ Signed ADDENDUM by Dr. Jeff Shanks MD on 02/15/25 at 1558 Addendum Addendum on time Start time was 3 PM and finished time was 3:30 PM 02/15/251557 Cosigner Signature (if applicable): cc: Dr. Jeff Shanks MD; No Primary Care Physician ~* Signed [facility]07-23-2025 Consult note [facility] Medical Records Department [address] [place] [address] Anesthesia Postop Eval I 02/15/251555 MR#: [id number] Acct: [id number] Name: AJ HARRINGTON Rep #:[id number] : 1995 29 From: Meera snyder DIRECT SELLING COUNSELOR PCP: Care Physician,No Primary Status :[facility] [place] Y Race: H Location: [place] [address] Anesthesia: Postop Eval I Current Vital Signs Temperature: 97.6 F Pulse Rate: 76 Blood Pressure: 127/82 Respiratory Rate: 16 Pulse Ox: 96 Oxygen Delivery Method: Room Air Assessment Airway patent: Yes Spontaneous unlabored respirations: Yes Mental status: Awake and Calm nausea: No Vomiting: No Anesthesia Complication: No Fluid Hydration Crystalloid volume administer (ml): 400 Total IV fluid infused: 400 Progress Note Anesthesia document: Postop Eval 1 completed: Yes 02/15/25 155 jayy DIRECT SELLING COUNSELOR> Date _ Meera Saldana CRNA Cosigner Signature: Date CC: ~ Signed [facility]07-23-2025 History and physical note [facility] Medical Records Department [address] [place] [address] H&P Exam - Surgical 02/15/25 1438 MR#: [id number] Acct: [id number] Name: AJ HARRINGTON Rep #:[id number] : 1995 29 From: Jeff Shanks MD PCP: Care Physician,No Primary Status :[facility] [place] Location: [place] [address] HPI - General HPI Narrative AJ HARRINGTON, is a 29 M who presents with left dorsal thumb laceration and concern for EPL complete laceration. Current Encounter (DATE OF SURGERY H&P UPDATE): I saw and examined the patient this morning in pre-operative holding. We discussed risks and benefits of today's surgery and they would like to proceed. NO CHANGE in health history since last seen and evaluated. Ready to proceed with surgery. PFSH Medical History no medical history Allergy/AdvReac Type Severity Reaction Status Date / Time No Known Allergies Allergy Verified 02/15/25 13:04 Surgical History no surgical history Social History Smoking Status: Never smoker Vital Signs Vital Signs Vital Signs: 02/15/25 13:10 02/15/25 13:10 02/15/25 14:04 Temperature 98.3 F 98.3 F Temperature Source Temporal Pulse Rate 62 62 Respiratory Rate 16 16 Respiratory Pattern Normal Blood Pressure 123/73 H 123/73 H Blood Pressure Mean 89 Blood Pressure Source Monitor Blood Pressure Position Semi-Fowlers Blood Pressure Location Right Arm Pulse Ox 100 100 Oxygen Delivery Method Room Air Room Air Weight Weight: 123 lb 7.342 oz Body Mass Index (BMI) 24.8 Physical Exam Narrative LUE: Left thumb with transverse dorsal laceration. Unable to extend thumb at IP joint. I marked his left thumb Assessment & Plan Assessment/Plan (1) Extensor tendon laceration of left hand with open wound: PLAN: I talked to the patient extensively about the risks of surgery, including bleeding, infection, damage to surrounding structures, poor scaring, surgical site dehiscence and wound formation, a stiff finger, need for hand therapy, failure of repair, need for revision or need for tendon transfer,need for wound care, need for repeat operations, failure to obtain the desired result, DVT/PE, and the risks of anesthesia including , including stroke (from low blood pressure/ischemia or clot). The benefits and alternatives of this surgery werealso discussed. All of their questions were answered, and they agreed to proceedwith surgery. INTERVAL H&P PLAN, DATE OF SURGERY: We will proceed with surgery today. 02/15/25 1440 Cosigner Signature (if applicable): CC: Dr. Jeff Shanks MD; No Primary Care Physician~ Signed [facility]07-23-2025 Consult note [facility] Medical Records Department [address] [place] [address] Pre-Anesthesia Evaluation 02/15/25 1350 MR#: [id number] Acct: [id number] Name: AJ HARRINGTON Rep #:[id number] : 1995 29 From: Marky Godoy MD PCP: Care Physician,No Primary Status :[facility] [place] [facility] Y Race: H Location: [place] [address] ASA Classification* ASA Classification ASA Classification: 1 and E Assessment & Plan Anesthesia* Anesthesia Assessment Anesthesia Assessment: Discussed sedation and/or anesthesia options, risks, benefits, and alternatives with patient/parents/legal guardian/POA. Questions invited. The patient/parents/legal guardian/POA seems to understand and agrees to proceedwith anesthesia plan. Reviewed the physical assessment, medical history, allergy history and patient home medications list prior to surgery/procedure/anesthetic and documented any changes. Performed airway and anesthesia risk assessments. Anesthesia Type Anesthesia Type: MAC History Source History Obtained from:: Patient, Chart and - (Interpretation service was used for this interview.) Anesthesia Focused Assessment* Temperature: 98.3 F Pulse Rate: 62 Blood Pressure: 123/73 Respiratory Rate: 16 Pulse Ox: 100 Oxygen Delivery Method: Room Air Airway Assessment Mouth opens: >3 cm Mallampati Score: I Teeth Condition: Intact Neck Range of motion (ROM): Full ROM Labs Anesthesia Preop lab: CBC CHEMISTRY COAG Pre-Assessment Diagnosis/Proposed Procedure Planned Operative Procedure(s): left thumb extensor tendon repair Anesthesia History 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 When Was Last Pacemaker Check QUESTION #4 FULL TEXT: You/Your Family Experience fever (hyperthermia) with Anesthesia Last Oral Intake Last Oral intake: Last Oral Intake NPO since 00:00 02/15/25 13:10 Meds taken in AM with sips of water? Meds patient instructed to take am of surgery PONV PONV - extrusion process operator: PONV - extrusion process operator Female No 02/15/25 13:05 HX of Motion Sickness No 02/15/25 13:05 HX of N/V After Surgery No 02/15/25 13:05 Non-Smoker Yes 02/15/25 13:05 Duration of Surgery greater No 02/15/25 13:05 than 60 minutes Number of Risk Factors 1 02/15/25 13:05 PONV Score Low Risk 02/15/25 13:05 Height & Weight Height & Weight: Anesthesia: Height & Weight Height 4 ft 11.06 in 02/15/25 13:10 Weight: 56 kg 02/15/25 13:10 Body Mass Index (BMI) 24.8 02/15/25 13:10 Respiratory Assessment Respiratory Assessment - extrusion process operator: Respiratory Tract Infection Hx - extrusion process operator Hx Respiratory Tract Infection No 02/15/25 13:05 STOP Sleep Apnea STOP Sleep Apnea - extrusion process operator: STOP Sleep Apnea - extrusion process operator Hx Hypertension No 02/15/25 13:05 Hx Sleep Apnea No 02/15/25 13:05 CPAP BIPAP Do you snore loudly (louder No 02/15/25 13:05 than talking or can be heard Do you often feel tired/ No 02/15/25 13:05 fatigued/ sleepy during daytime? Has anyone observed you stop No 02/15/25 13:05 breathing during sleep? STOP Results Negative 02/15/25 13:05 QUESTION #5 FULL TEXT : Do you snore loudly (louder than talking or can be heard through closeddoors)? 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 Specify any problems Hx of Preganancy in last 3 N/A 02/15/25 13:05 Months Nurse Filling Out Transfusion CPARSONS 02/15/25 13:05 & Questions: Date: 02/15/25 02/15/25 13:05 Time: 13:09 02/15/25 13:05 Patient unable to answer at this time (ie. 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 operator Hx Now No 02/15/25 13:05 Gestational Age (in weeks): EDC: Hx Hx Para Hx Section SAB Active Medications Active Medications: Current Medications Generic Name Dose Route Start Last Admin Trade Name Freq PRN Reason Stop Dose Admin Cefazolin Sodium 2 gm/ Sodium 110 mls @ 200 mls/hr 02/15/25 15:00 Chloride IV 02/15/25 15:32 INTRAOP ONE Lactated Ringer's 1,000 mls @ 15 mls/hr 02/15/25 13:00 02/15/25 13:25 IV 15 mls/hr .Q48H OSMAR Administration PFSH Medical History no medical history Allergy/AdvReac Type Severity Reaction Status Date / Time No Known Allergies Allergy Verified 02/15/25 13:04 Surgical History no surgical history no surgical history Social History Smoking Status: Never smoker Review of Systems (Anesthesia) ROS Narrative System reviewed and no additional complaints, except as documented. 02/15/25 1406 dee SAHNI> Date _ Marky Godoy MD Cosigner Signature: Date CC: ~ Signed [facility]07-22-2025 Evaluation note* Diagnosis Onset Date Resolution Status Admit Date Extensor tendon laceration o f left hand with open wound acute January 252024 4:17pm Extensor tendon laceration o f left hand with open wound acute January 252024 12:41pm [facility] Work Phone: 1(175) 334-282807-21-2025 Radiology Diagnostic study note [facility] Imaging Services [address], [place] [address] Finger(s) Min 2 Views MR#: [id number] Acct: [id number] Name: AJ HARRINGTON Rep #: [id number] : 1995 M 29 From: Fernando Menendez MD PCP: Care Physician,No Primary Status: REG ER Study:Finger(s) Min 2 Views Date of Exam: 02/13/25 Exam# [id number] Ordering Dr: Leona Angulo MD PROCEDURE: LEFT FINGER(S) MIN 2 VIEWS 02/13/2025 REASON FOR EXAM: LEFT THUMB LACERATION. TECHNIQUE: Frontal lateral and oblique radiographs of the left thumb COMPARISON: None. FINDINGS: No acute fracture or dislocation/subluxation. The interphalangeal joint of the thumb is fixed in the slightly flexed position, which may reflect injury to the extensor tendon. Preserved joint spaces. No aggressive osseous lesion. Mild soft tissue swelling about the thumb. No radiopaque foreign body. RAD/Finger(s) Min 2 Views IMPRESSION: No acute fracture. The left 1st digit (thumb) interphalangeal joint fixed in the flexed position which may reflect injury to the extensor tendon. Reading Location: [id number] CC: Dr. Champ Angluo MD; No Primary Care Physician ~ Car Spotter: [facility]igned [facility] assessment information available [facility] Work Phone: Hospital Discharge instructionsAdditional Instructions Operations Performed: Left thumb tendon repair Instructions for My Care at Home or Healthcare Facility The following instructions will help you know what to expect in the days following surgery. These are general instructions. Your surgeon and therapist may give you special instructions, which vary to some degree based on your specific procedure -- follow those as directed. Do not, however, hesitate to call if you have any questions or concerns. Splint Care/Dressing Care/Wound Care Dressings - You may have a dressing over the operative site. Keep the splint dressing dry and in place until your follow up If the dressing feels too tight after you get home, it is ok to gently pull on the dressing to stretch it out/loosen it. Avoid smoking or other tobacco products. Smoking tobacco impairs wound healing and increases the risks of post-operative complications. Tape over your incisions (if present) will fall off on its own Activities For the first 4 weeks after surgery, try to balance your activity, allowing time for rest. Avoid lifting, pushing, or pulling anything over [address] or operate heavy machinery within 24 hrs of surgery or while taking narcotic pain medication. Pain Control/Medications If you received an anesthetic block, your hand or arm may be numb for several hours. You will be discharged to home with medications, including an oral pain medication (analgesic). Rest and elevation are still one of the most important factors for pain control. Take your pain medication as needed, but do not wait for the pain to become out of control. For severe pain, you may take prescription pain medication as directed, but please note that this may also contain Tylenol (e.g. Percocet). Do not take more than 4000mg of Tylenol (acetaminophen) from all sources daily. Pain medication may cause some lethargy, nausea, and or constipation. You should not drive/operate dangerous machinery while taking these medications. If these or other symptoms become significantly problematic, please your surgeon's office. If prescribed oral antibiotics (Keflex, Clindamycin, or others), please take prescription for full duration as instructed. You should not have any pills remaining once completed (refills are written for your convenience should the course need to be extended, but generally they are not required). Diet (what I can eat): Resume normal diet Follow up You will be seen (most likely) 1 to 2 weeks after surgery depending on the procedure. Follow-up appointment reminders: (A list of any scheduled appointments is at the end of this document) At your earliest convenience, please call [phone] to confirm/schedule a follow-up appointment with [me] in clinic. When to call your surgeon: If any signs of surgical site infection develop: redness, pus, pain, increased swelling or foul odor at the incision site, fever, cold and clammy skin, or confusion. Consistent temperature above 101 F (38.3 C). The affected area gets swollen or much more painful. You have excessive bleeding from surgical site (soaking through). If you experience difficulty breathing and/or shortness of breath, seek immediate medical attention. If experiencing any of the above complications or if you have any questions, call [phone] Work Phone: Reason for referral (narrative)No reason for referral information availableWOhioHealth [facility] Work Phone: Chief Complaint and Reason for Visit Chief Complaint Admit Date lac February 13, 2025 3:27 pm Chief Complaint Admit Date lac February 13, 2025 3:27 pm ED FOLLOW UP-[facility] February 14, 2025 4:17 pm Reason for Visit Admit Date Extensor tendon laceration of left hand with open wound February 14, 2025 4:17pm Extensor tendon laceration of left hand with open wound February 15, 2025 12:41pm Advance Directives Advance Directive Response Recorded Date/ Time Do you have a Healthcare Power of Boxing Promoter? No February 13, 2025 3:35pm Advance Directive Response Recorded Date/ Time Do you have a Healthcare Power of Boxing Promoter? No February 13, 2025 3:35pm Do you have a Healthcare Power of Boxing Promoter? No February 15, 2025 1:05pm Summary Purpose Family History No Family History Records Found Additional Source Comments Care Teams (unrecognized sec tion and content) Team Status: Active Member Role/Relationship Status Dates No Primary Care Physician Primary Care Provider Active Team Status: Inactive Member Role/Relationship Status Dates Dr. Champ Angulo MD Emergency Provider Active S tart: February 13, 2025 End: February 13, 2025 No Primary Care Physician Primary Care Provider Active Start: February 13, 2025 End: February 13, 2025 Team Status: Inactive Member Role/Relationship Status Dates No Primary Care Physician Primary Care Provider Active Start: February 14, 2025 End: February 14, 2025 No Primary Care Physician Referring Provider Active Start: February 14, 2025 End: February 14, 2025 Dr. Jeff Shanks MD Attending Provider Active Start: February 14, 2025 End: February 14, 2025 Team Status: Inactive Member Role/Relationship Status Dates No Primary Care Physician Primary Care Provider Active Start: February 15, 2025 End: February 15, 2025 Dr. Jeff Shanks MD Attending Provider Active Start: February 15, 2025 End: February 15, 2025 Dr. Jeff Shanks MD Referring Provider Active Start: February 15, 2025 End: February 15, 2025 Team Status: Active Member Role/Relationship Status Dates No Primary Care Physician Primary Care Provider Active Start: February 15, 2025 Dr. Jeff Shanks MD Attending Provider Active Start: February 15, 2025 Dr. Jeff Shanks MD Referring Provider Active Start: February 15, 2025 Dr. Jeff Shanks MD Other Provider Active Star t: February 15, 2025 Goals (unrecognized section and content) Goals may be documented in a n alternate sectionGoals may be documented in an alternate section (unrecognized sect ion and content) No Status Records Found INFORMATION SOURCE (unrecogn ized section and content) DATE CREATED AUTHOR 02/15/[address] [facility] FOR RECORDS PERTAINING TO PATIENTS WHO ARE OR HAVE BEEN ENROLLED IN A CHEMICAL DEPENDENCY/SUBSTANCEABUSE PROGRAM, SOME INFORMATION MAY BE OMITTED. This clinical summary was aggregated from multiple sources. Caution should be exercised in using it in the provision of clinical care. This summary normalizes information from multiple sources, and as a consequence, information in this document may materially change the coding, format and clinical context of patient data. In addition, data may be omitted in some cases. CLINICAL DECISIONS SHOULD BE BASED ON THE PRIMARY CLINICAL RECORDS. [employer] [facility]. provides no warranty or guarantee of the accuracy or completeness of information in this document.
== END 2025-02-15 18:01 | disposition home or self-care (01) ==
LOC: SDC 12:43 → AC 12:48
PROVIDERS: Referring Provider Surgery Plastic and Reconstructive Surgery; Visit Provider Surgery Plastic and Reconstructive Surgery
PROC: (CPT 26418; principal; 2025-02-15 14:45)
DX: S66.222A Laceration of extensor muscle, fascia and tendon of left thumb at wrist and hand level, initial encounter (principal)
CPT/HCPCS: 26418; 01810; J2405

== ENCOUNTER 2025-04-13 13:00 | Outpatient (RCR) | payer OTHER, SELFPAY ==
--- NOTE | 2025-03-08 10:07 | HP.OTEVAL ---
Patient's Visit Information Visit Information Visit Information: AJ HARRINGTON is a 29 year old M, referred to Occupational Therapy by Dr. Jeff Shanks MD, with a diagnosis of left EPL laceration. Date of Evaluation: 03/07/25 Occupational Therapist: Marion Villar, OTR/David, CHT Subjective Subjective: This 29 year old male was seen for OT eval with dx of left EPL tendon laceration. Pt states he cut his hand while at work about 3 weeks ago. pt is right handed. pt does not speak Croatian- Ana a [employer] employee did interpret for the pt. today on doc. dx and guidelines on sx. Pain left hand: Current Pain Intensity: 0 Pain Intensity Range: 0 and 2 ROM CMC: right 10 left 5 MP: right 40 left 5 IP: right 55 left 5 ROM Comments: pt demo limited left thumb active ROM at this time due to newly healing structures pt demo the ability to form a light fist with his fingers Sensation Sensation Comments: denies Quick DASH-Disab of Arm,Shoulder& Hand Quick DASH Score: [phone] Goals Goal:Daily scar massage when approriate: Yes Goal:ROM equal to unaffected hand: Yes Goal:Coin Purse Assembler/Pinch strength at least 75% of unaffected hand: Yes Comment: will not initiate until week 6 s/p Goal:No pain with affected hand use: Yes Goal:Full use of affected hand in daily activities including work: Yes Goal:Decrease scar hypersensitivity: Yes Other Goal: orthosis use: pt will demo IND donning and doffing of orthosis by end of 1st session. pt will demo understanding to return to clinic for orthosis adj as needed to increase comfort and compliance with orthosis use. Rehabilitation General Assessment: Pt arrives 2 weeks and 6 days s/p from EPL repair of left thumb. pt demo with slight swelling of left hand, newly healing tendon repair, limited use of left hand for work or daily tasks. Pt demo need for skilled OT services 1-2x week for 6 weeks to return pt to his PLOF. Today therapist robbie. custom orthosis to provide support and protection of the EPL repair- ed. pt on initiation of AROM of fingers and thumb ( slow movements with a light stretch only for thumb working on 20-30 * of flexion with full ext) pt communicated understanding. therapist will cont to improve pts function to return to his PLOF. pt demo understanding and agree to POC. Rehabilitation Potential: Good Anticipated Interventions Anticipated Interventions: A/AAROM/PROM, Strengthening, Scar Care, Triggerpoint Release, Modalities, Orthoses, Joint Protection/Energy Conservation, Ergonomic Education, Fine Motor Coord/Trevin, Education re assistive Equipment, Education re Diagnosis and Home Program Visit Plan Frequency: 1-2x /Week Duration: 6 Weeks General Plan: week 3 hand-based orthosis Initiate AROM flexion at each joint; progress in 25-30 degree increments each week. Week 4-5 AAROM flexion, isolated and combined joint Light prehension ADL out of splint. Week 6 Begin to wean from splint. Moderate prehension ADL out of splint. Week 8 D/C splint return to full function PRE TEXT: Thank you for the opportunity to evaluate your patient. For Medicare and Medicare HMO plans, please review the plan of care and approve it. It will need to be FAXED BACK to us at [phone] for Medicare purposes. Please let me know if there are questions or concerns regarding this plan of care. Physician Signature: Date:
== END 2025-04-13 19:00 | disposition home or self-care (01) ==
LOC: OT 13:00
PROVIDERS: Referring Provider Surgery Plastic and Reconstructive Surgery; Visit Provider Surgery Plastic and Reconstructive Surgery
DX: S66.822D Laceration of other specified muscles, fascia and tendons at wrist and hand level, left hand, subsequent encounter (principal); S61.402D Unspecified open wound of left hand, subsequent encounter
CPT/HCPCS: 97110; 97140; 97166; 97530